=== PATIENT | female | born 1935 | race Caucasian/White ===

== ENCOUNTER 2019-04-01 11:28 | Day surgery (SDC) | payer BC, MEDICARE ==
[2019-03-27 11:10] VITALS: BMI 22.8
[~2019-04-01 11:28] MED LIST: LACTATED RINGERS 1,000 ML IV SCH; LIDOCAINE 1% 20 ML VIAL (10MG/ML) FOR IV START INTRADERMA PRN; MOXIFLOXACIN HCL 0.5% DROPS 3 ML BTL OP ONE; TETRACAINE 0.5% OPHTH (PF) DROPS 4 ML BTL OP ONE; TIMOLOL 0.5% OPHTH DROPS 5 ML BTL OP ONE
[2019-04-01] MEDS: CYCLOPENTOLATE 1% OPHTH SOLN 2 ML BTL OP ONE ×3 (12:05→12:15)
[2019-04-01 12:06] VITALS: TEMP 97.1
[2019-04-01] MEDS: PHENYLEPHRINE 2.5% OPHTH DRP 2ML OP NR ×3 (12:07→12:17)
[2019-04-01] MEDS ORDERED: MIDAZOLAM 2 MG/2 ML VIAL ONE (13:23)
[2019-04-01] MEDS ORDERED: HYALURONATE SODIUM INTRAOCULAR 1 EACH SYRINGE (12MG/ML) INTRAOCULA ONE (13:36)
[2019-04-01] MEDS ORDERED: BALANCED SALT IRRIG SOLN COMB2 15 ML IRRIG.SOLN IRRIGATION ONE (13:37)
[2019-04-01] MEDS ORDERED: LIDOCAINE 1% (PF) 10MG/ML VIAL SQ ONE (13:37)
[2019-04-01] MEDS ORDERED: EPINEPHrine (PF) 0.3 ML in BALANCED SALT IRRIG SOLN COMB2 500 ML IRRIGATION ONE (13:38)
--- NOTE | 2019-04-01 13:55 | P.OP ---
Date of Procedure: 04/01/19 Preoperative Diagnosis: & CS & reg astigmatism Postoperative Diagnosis: same Procedure(s) Performed: PIOL, OD Implants: [id number] 22.0 x 3.50 Anesthesia: MAC Surgeon: Julio Cesar Acosta Estimated Blood Loss (ml): 0 Pathology: none sent Condition: stable Disposition: same day Indications for Procedure: blurry vision Operative Findings: no complications
[2019-04-01 14:00] VITALS: PULSE 63; RESP 18
[2019-04-01 14:24] VITALS: BP 168/76
--- NOTE | 2019-04-01 22:47 | OP ---
OPERATIVE REPORT DATE OF SURGERY: April 01, 2019. PROCEDURE PERFORMED: Phacoemulsification of cataract and intraocular lens implant of the right eye. PREOPERATIVE DIAGNOSES: Nuclear sclerosis, cortical sclerosis and regular astigmatism. POSTOPERATIVE DIAGNOSES: Nuclear sclerosis, cortical sclerosis and regular astigmatism. SURGEON: Dr. Julio Cesar Acosta. ANESTHESIA: Topical. ESTIMATED BLOOD LOSS: Is none. SPECIMEN: Taken none. NARRATIVE: After obtaining the appropriate consent, the patient was then brought to the operating room. There she was asked to sit upright and the axis 0 and 180 degrees was identified and marked with a gentian madhavi marker. She was then laid in the proper supine position under cardiac monitoring, then prepped and draped in the usual sterile manner. Using previously acquired corneal topography information, the axes of 3 degrees was identified and marked with a [employer] axis marker. At the 11 o'clock position an MVR blade was used to create a paracentesis port. Through this opening, 1% Xylocaine MPF 50 50 mix with balanced salt solution was injected into the anterior chamber. This was followed by stabilization of the anterior chamber with Amvisc. At the 9 o'clock position, a 2.5 mm keratome was used to create a self-sealing corneal flap incision in a Langerman's fashion. Through this opening, a cystotome was introduced to begin a continuous tear capsulorrhexis which was completed using the Utrata forceps. Hydrodissection and hydrodelineation of the lens was accomplished utilizing phaco chop in 12.73 seconds at 11% power. Additional Xylocaine MPF was instilled in the anterior chamber. This was followed by removal of the remaining cortex from the capsular bag as well as careful polishing of the posterior capsule in the capsule vacuum mode. Additional Amvisc was then used to stabilize the capsular bag and a Bausch and Lomb MX 60 T 22.0 diopter spherical equivalent by 3.5 diopter cylinder correction was then placed into the capsular bag without difficulty. Viscoelastic from in and around the intraocular lens as well as the anterior chamber was removed under irrigation aspiration. After allowing for sufficient time for the haptics to deploy, the lens was then rotated to correspond to the axis of 3 degrees, which would previously been identified on the patient's cornea. Once the lens was in the proper position, a little pressure was applied posteriorly against the capsular bag to ensure stability. The eye was then brought to normal intraocular pressures through the paracentesis port with balanced salt solution and confirmation of the wounds as water tight was confirmed. She then received 2 drops of 0.5% timolol followed by 2 drops of moxifloxacin, was then lightly patched and shielded in the usual manner. There were no complications from the procedure. She tolerated the procedure well and was returned to recovery in good condition. GINA / AYSHAN: [id number] /
== END 2019-04-01 14:46 | disposition home or self-care (01) ==
LOC: OR 11:28
PROVIDERS: ATTEND Ophthalmology
DX: H25.811 Combined forms of age-related cataract, right eye (principal); H53.2 Diplopia; H18.51 Endothelial corneal dystrophy; H25.13 Age-related nuclear cataract, bilateral; H04.123 Dry eye syndrome of bilateral lacrimal glands; H00.023 Hordeolum internum right eye, unspecified eyelid; H05.20 Unspecified exophthalmos; H52.4 Presbyopia; H52.223 Regular astigmatism, bilateral; Z85.820 Personal history of malignant melanoma of skin; Z86.19 Personal history of other infectious and parasitic diseases; Z97.3 Presence of spectacles and contact lenses
CPT/HCPCS: 66984; C1780; J2250; J0171; J2001

== ENCOUNTER 2019-04-15 10:33 | Day surgery (SDC) | payer MEDICARE ==
[2019-04-13 10:09] VITALS: BMI 22.1
[~2019-04-15 10:33] MED LIST changes: -MOXIFLOXACIN HCL 0.5% DROPS 3 ML BTL OP ONE; -TIMOLOL 0.5% OPHTH DROPS 5 ML BTL OP ONE
[2019-04-15 11:11] VITALS: TEMP 97.7
[2019-04-15] MEDS: CYCLOPENTOLATE 1% OPHTH SOLN 2 ML BTL OP ONE ×3 (11:13→11:23)
[2019-04-15] MEDS: PHENYLEPHRINE 2.5% OPHTH DRP 2ML OP NR ×3 (11:17→11:25)
[2019-04-15] MEDS ORDERED: DUOVISC KIT (GREEN BOX) INTRAOCULA ONE ×2 (11:59→12:12)
[2019-04-15] MEDS ORDERED: LIDOCAINE 1% (PF) 10MG/ML VIAL SQ ONE ×2 (12:00→12:12)
[2019-04-15] MEDS: MOXIFLOXACIN HCL 0.5% DROPS 3 ML BTL OP ONE ×2 (12:00→12:12)
[2019-04-15] MEDS: TIMOLOL 0.5% OPHTH DROPS 5 ML BTL OP ONE ×2 (12:00→12:12)
[2019-04-15] MEDS ORDERED: fentaNYL (PF) 50 MCG/ML 2 ML AMP ONE (12:01)
[2019-04-15] MEDS ORDERED: MIDAZOLAM 2 MG/2 ML VIAL ONE (12:01)
[2019-04-15] MEDS ORDERED: BALANCED SALT IRRIG SOLN COMB2 15 ML IRRIG.SOLN IRRIGATION ONE (12:12)
[2019-04-15] MEDS ORDERED: EPINEPHrine (PF) 0.3 ML in BALANCED SALT IRRIG SOLN COMB2 500 ML IRRIGATION ONE (12:14)
--- NOTE | 2019-04-15 12:34 | P.OP ---
Date of Procedure: 04/15/19 Preoperative Diagnosis: NS & CS reg astigmatism Postoperative Diagnosis: same Procedure(s) Performed: PIOL, OS Implants: [id number] 21.50 Anesthesia: MAC Surgeon: Julio Cesar Acosta Pathology: none sent Condition: stable Disposition: same day Indications for Procedure: blurry vision Operative Findings: no complications
[2019-04-15 13:07] VITALS: BP 193/81; PULSE 59; RESP 16
--- NOTE | 2019-04-15 20:20 | OP ---
OPERATIVE REPORT DATE OF SURGERY: 04/15/2019. PROCEDURE: Phacoemulsification of cataract and intraocular lens implant of the left eye. PREOPERATIVE DIAGNOSES: 1. Nuclear sclerosis, left eye. 2. Cortical sclerosis, left eye. 3. Regular astigmatism, left eye. POSTOPERATIVE DIAGNOSES: 1. Nuclear sclerosis, left eye. 2. Cortical sclerosis, left eye. 3. Regular astigmatism, left eye. SURGEON: Dr. Julio Cesar Acosta. ANESTHESIA: Topical. ESTIMATED BLOOD LOSS: None. SPECIMEN TAKEN: None. NARRATIVE: After obtaining the appropriate consent, the patient was brought to the operating room. There she was asked to sit upright, and the axes of 0 and 180 degrees were identified and marked with a gentian madhavi marker. She was then placed in the proper supine position under cardiac monitoring, then prepped and draped in the usual sterile manner. She was approached from her left temporal side and, using previously acquired corneal topography information, an axis of 178 degrees was identified and marked using a [employer] axis marker. This was followed by using an MVR blade to create a paracentesis port at the 5 o'clock position. Through this opening 1% Xylocaine MPF 50:50 mix with balanced salt solution was injected into the anterior chamber. This was followed by stabilization of the anterior chamber with Viscoat. At the 3 o'clock position, a 2.5 mm keratome was used to create a self-sealing corneal flap incision in a Langerman's fashion. Through this opening a cystotome was introduced to begin a continuous tear capsulorrhexis which was completed using the Utrata forceps. Hydrodissection and hydrodelineation of the lens was accomplished with balanced salt solution. Phacoemulsification of the lens utilizing Phaco Chop was accomplished in 11.55 seconds at 11% power. This was followed by removal of the remaining cortex under irrigation and aspiration along with careful polishing of the posterior capsule in the capsule vacuum mode. Provisc was then used to stabilize the capsular bag and a Bausch and Lomb MX 60T 21.5 diopter spherical equivalent x 2.75 diopter cylinder correction was placed into the capsular bag without difficulty. The remaining viscoelastic was removed from in and around the intraocular lens and then the lens was rotated to the axis of 178 degrees in alignment with the previously placed corneal rodriguez. The lens was tamponaded against the posterior capsule and the irrigation/aspiration instrument was removed. Balanced salt solution was then used to bring the eye to normal intraocular pressure and the temporal incision was confirmed watertight. She then received 2 drops of 0.5% Timolol followed by 2 drops of moxifloxacin, was then lightly patched and shielded in the usual manner. There were no complications from the procedure. She tolerated the procedure well and was returned to [facility]patient [facility] in good condition. GINA / AARON: [id number] /
== END 2019-04-15 13:20 | disposition home or self-care (01) ==
LOC: OR 10:33
PROVIDERS: ATTEND Ophthalmology
DX: H25.12 Age-related nuclear cataract, left eye (principal); H25.012 Cortical age-related cataract, left eye; H52.223 Regular astigmatism, bilateral; H18.51 Endothelial corneal dystrophy; H04.123 Dry eye syndrome of bilateral lacrimal glands; H00.026 Hordeolum internum left eye, unspecified eyelid; H00.023 Hordeolum internum right eye, unspecified eyelid; H05.20 Unspecified exophthalmos; H52.13 Myopia, bilateral; H52.4 Presbyopia; Z96.1 Presence of intraocular lens; Z98.41 Cataract extraction status, right eye; Z79.899 Other long term (current) drug therapy; Z85.828 Personal history of other malignant neoplasm of skin; Z83.518 Family history of other specified eye disorder; Z80.9 Family history of malignant neoplasm, unspecified; Z82.49 Family history of ischemic heart disease and other diseases of the circulatory system
CPT/HCPCS: 66984; C1780; J2250; J0171; J3010; J2001